=== PATIENT | male | born 1945 | race African-American/Black ===

== ENCOUNTER 2019-03-24 16:47 | Emergency (ER) | payer MEDICARE ==
[~2019-03-24] VITALS: Ht 165.1 cm; Wt 54.5 kg
[~2019-03-24 16:47] MED LIST: NO MEDS
[2019-03-24 17:37] LABS: ALKALINE PHOSPHATASE 106 u/l (38-126); BUN 24 mg/dL (8-23); BUN/CREATININE RATIO 24 (12-20 (CALC)); CHLORIDE 99 mmol/l (95-108); GFR > 60 ML/MIN (>=60 (CALC)); GFR FOR AFR.AMER. > 60 ML/MIN (>=60 (CALC)); SODIUM 138 mmol/l (137-146)
[2019-03-24 17:39] LABS: HEMATOCRIT 42.9 % (39.0-50.0); HEMOGLOBIN 14.3 g/dl (14.0-18.0); IMMATURE GRANULOCYTES 0.5 % (0.0-5.0); MEAN CELL VOLUME 89.6 fL CALC (80.0-100.0); MEAN CORPUSCULAR HGB 29.9 pG CALC (26.0-32.0); MEAN CORPUSCULAR HGB CONC 33.3 g/L CALC (32.0-36.0); NEUT# 10.72 thou/uL (1.82-7.42); RED BLOOD COUNT 4.79 mill/uL (4.70-6.10); RED CELL DISTRI WIDTH 12.6 % (11.5-15.5)
[2019-03-24 17:47] LABS: BILIRUBIN, TOTAL 1.6 mg/dL (0.0-1.4); CARBON DIOXIDE 23 mmol/l (22-30); SGOT/AST 118 u/l (19-48)
[2019-03-24 17:58] LABS: ANION GAP 20 (6-22 (CALC)); POTASSIUM 4.2 mmol/l (3.5-5.1)
[2019-03-24 18:19] LABS: ACT PARTIAL THROMBO TIME 33.8 SECONDS (20.0-32.5); INTERNATIONAL NORMALIZED RATIO 1.5 RATIO (0.7-1.3); PROTHROMBIN TIME 15.8 SECONDS (9.0-12.5)
[2019-03-24 19:39] LABS: URINE BILIRUBIN - DIPSTICK NEGATIVE (NEGATIVE); URINE BLOOD DIPSTICK LARGE (NEGATIVE); URINE COLOR YELLOW; URINE GLUCOSE - DIPSTICK NEGATIVE (NEGATIVE); URINE KETONE NEGATIVE (NEGATIVE); URINE LEUK ESTERASE NEGATIVE (NEGATIVE); URINE NITRITE - DIPSTICK NEGATIVE (Negative); URINE PH 5.5 (4.5-8.0); URINE PROTEIN - DIPSTICK 30 mg/dL (NEG-TRACE); URINE SPECIFIC GRAVITY 1.025
[2019-03-24 20:20] LABS: URINE RBC TNTC RBC/hpf (0-5)
[2019-03-24 20:26] LABS: URINE SQUAMOUS EPITHELIAL CELL FEW EPI/hpf (0-FEW)
[2019-03-24 23:34] VITALS: BP 154/84
[2019-05-10] MEDS ORDERED: ISOSORBIDE MONO60 MG PO (10:44)
[2019-05-10] MEDS ORDERED: HYDROCHLOROT25 MG PO (10:44)
[2019-05-10] MEDS ORDERED: NORVASC5 M1 PO (10:44)
[2019-05-10] MEDS ORDERED: STIOLTO RESPIMA1 AER (10:44)
[2019-05-10] MEDS ORDERED: ADVAIR DISK1 (10:45)
[2019-05-10] MEDS ORDERED: VALSARTAN160 MG PO (10:46)
[2019-05-10] MEDS ORDERED: METOPROL TAR25 MG PO (10:46)
== END 2019-03-24 22:45 ==
LOC: ED 16:47
DX: R06.03 Acute respiratory distress (principal); R09.02 Hypoxemia; I71.4 Abdominal aortic aneurysm, without rupture; E87.2 Acidosis; T50.916A Underdosing of multiple unspecified drugs, medicaments and biological substances, initial encounter; Z91.128 Patient's intentional underdosing of medication regimen for other reason; Z95.0 Presence of cardiac pacemaker; R00.0 Tachycardia, unspecified; D72.829 Elevated white blood cell count, unspecified
CPT/HCPCS: Q9967

== ENCOUNTER 2019-12-08 20:02 | Observation (INO) | payer MEDICARE ==
[~2019-12-08] VITALS: Ht 165.1 cm; Wt 56.4 kg
[~2019-12-08 20:02] MED LIST changes: +ADVAIR DISK1; +HYDROCHLOROT25 MG PO; +ISOSORBIDE MONO60 MG PO; +METOPROL TAR25 MG PO; +NORVASC5 M1 PO; +STIOLTO RESPIMA1 AER; +VALSARTAN160 MG PO
--- NOTE | 2019-12-08 20:06 | NUR ---
PT WHEELED TO ROOM 13 AND TRIAGED. PT COMPLAINING ABOUT RIGHT INGUINAL HERNIA THAT POPPED OUT ABOUT 3 HOURS AGO AND HE "CAN'T GET IT BACK IN"
--- NOTE | 2019-12-08 20:15 | NUR ---
PT UNABLE TO LIST MEDICATIONS. WILL PUT IN PHARMACY CONSULT IF PT ADMITTED.
[2019-12-08 20:44] LABS: HEMATOCRIT 40.6 % (39.0-50.0); HEMOGLOBIN 13.2 g/dl (14.0-18.0); IMMATURE GRANULOCYTES 0.3 % (0.0-5.0); MEAN CELL VOLUME 87.7 fL CALC (80.0-100.0); MEAN CORPUSCULAR HGB 28.5 pG CALC (26.0-32.0); MEAN CORPUSCULAR HGB CONC 32.5 g/dL CAL (32.0-36.0); NEUT# 2.58 thou/uL (1.82-7.42); RED BLOOD COUNT 4.63 mill/uL (4.70-6.10); RED CELL DISTRI WIDTH 11.9 % (11.5-15.5)
[2019-12-08 20:45] LABS: URINE BILIRUBIN - DIPSTICK NEGATIVE (NEGATIVE); URINE BLOOD DIPSTICK MODERATE (NEGATIVE); URINE COLOR YELLOW; URINE GLUCOSE - DIPSTICK NEGATIVE (NEGATIVE); URINE KETONE TRACE mg/dL (NEGATIVE); URINE LEUK ESTERASE NEGATIVE (NEGATIVE); URINE NITRITE - DIPSTICK NEGATIVE (Negative); URINE PH 5.5 (4.5-8.0); URINE PROTEIN - DIPSTICK 100 mg/dL (NEG-TRACE); URINE SPECIFIC GRAVITY >=1.030; URINE UROBILINOGEN - DIPSTICK 0.2 E.U./dL (0.2)
[2019-12-08 20:46] LABS: URINE EPITHELIAL CELLS FEW EPI/hpf (0-FEW); URINE MUCUS MODERATE hpf (NONE-FEW)
[2019-12-08 20:57] LABS: ALBUMIN 4.7 g/dL (3.2-5.0); ALKALINE PHOSPHATASE 105 u/l (38-126); ANION GAP 11 (6-22 (CALC)); BUN 17 mg/dL (8-23); BUN/CREATININE RATIO 19 (12-20 (CALC)); CARBON DIOXIDE 30 mmol/l (22-30); CHLORIDE 105 mmol/l (95-108); CREATININE 0.9 mg/dL (0.7-1.3); GFR > 60 ML/MIN (>=60 (CALC)); GFR FOR AFR.AMER. > 60 ML/MIN (>=60 (CALC)); POTASSIUM 3.7 mmol/l (3.5-5.1); SODIUM 142 mmol/l (137-146); TOTAL PROTEIN 7.5 g/dL (6.3-8.2)
[2019-12-08 20:59] LABS: ACT PARTIAL THROMBO TIME 23.6 SECONDS (20.0-32.5); INTERNATIONAL NORMALIZED RATIO 1.3 RATIO (0.7-1.3); PROTHROMBIN TIME 12.6 SECONDS (9.0-12.5)
[2019-12-08 21:00] LABS: BILIRUBIN, TOTAL 0.6 mg/dL (0.0-1.4); SGOT/AST 25 u/l (19-48)
--- NOTE | 2019-12-08 21:44 | NUR ---
PAIN IS NOW N SCALE NO N/V W/D SKIN PACED RHYTHM
--- NOTE | 2019-12-08 22:40 | NUR ---
A/OX3 NO N/V NO C/O PAIN PACED RHYTHM ON MONITOR
--- NOTE | 2019-12-08 23:10 | NUR ---
PHONE REPORT TO NURSE ANUJ CARREON [facility]
--- NOTE | 2019-12-08 23:12 | NUR ---
REPORT REC FROM MARYCHUY MCGUIRE
--- NOTE | 2019-12-08 23:15 | NUR ---
PT TRANSPORTED TO [facility] ON [facility] IN IMPROVED STABLE CONDITION
--- NOTE | 2019-12-08 23:19 | NUR ---
PT ARRIVED TO MS VIA STRETCHER ACCOMPANIED BY MARYCHUY MCGUIRE. A&O X3. NO DISTRESS NOTED. PT REPORTS PAIN 3/10. REPORTS LAST BM TO HAVE BEEN 3 DAYS AGO. HYPOACTIVE BOWEL SOUNDS HEARD UPON AUSCULTATION. LT UPPER CHEST PACEMAKER NOTED. RT TESTICLE NOTICEABLY LARGER COMPARED TO THE LT. DENIES ANY NAUSEA AT THIS TIME. #20 TO LAC PATENT AND EASILY FLUSHED. IV FLUIDS TO BE INITIATED. EDUCATED AND INFORMED PT ON NPO STATUS, PT VERBALIZED UNDERSTANDING. ORIENTED PT TO ROOM. WEAK AND UNSTEADY GAIT OBSERVED DURING AMBULATION TO BATHROOM. FABIOLA HOSES APPLIED. ASSESSMENT COMPLETED. DISCUSSED POC. CALL LIGHT IN REACH. CONTINUE TO MONITOR.
[2019-12-08 23:20] VITALS: BP 190/87
[2019-12-09 00:20] VITALS: BP 173/87
--- NOTE | 2019-12-09 00:33 | NUR ---
PTS BP UPON ARRIVAL 190/87, REEVALUATED BP 173/84. OBTAINED VERBAL ORDERS FROM ED PHYSICIAN DR FREEMAN FOR CLONIDINE 0.2 MG PO Q4 PRN. ORDER READ BACK TO PHYSICIAN, ORDER WRITTEN AND FAXED TO .
[2019-12-09 01:21] VITALS: BP 160/75
--- NOTE | 2019-12-09 01:21 | NUR ---
BP RE-EVALUATED BEFORE ADMINISTRATION OF CLONIDINE. BP NPW 160/75. CLONIDINE NOT GIVEN. WILL CONTINUE TO MONITOR.
--- NOTE | 2019-12-09 04:06 | NUR ---
PT SLEEPING IN BED. RESP EVEN AND UNLABORED. CONTINUE TO MONITOR
[2019-12-09 04:31] VITALS: BP 147/77
[2019-12-09] MEDS ORDERED: CLOPIDOGREL75 MG PO (07:35)
[2019-12-09] MEDS ORDERED: COZAAR100 MG PO (07:35)
[2019-12-09] MEDS ORDERED: TOPROL XL100 MG PO (07:36)
[2019-12-09] MEDS ORDERED: ATORVASTATIN CA40 MG PO (07:36)
--- NOTE | 2019-12-09 07:50 | NUR ---
RECEIVED REPORT FROM ANUJ REGARDING THIS PT. PT IS ALERT AND ORIENTED AND ABLE TO MAKE NEEDS KNOWN. SKIN WARM TO TOUCH.RESPIRATORY PANEL COMPLETED. RESIDENT HAVING SURGERY SCHEDULED THIS AM. NPO SINCE MIDNIGHT. BOWEL SOUNDS ACTIVE IN ALL QUADRANTS AND DENIES ABDOMINAL PAIN AT THIS TIME. RESPIRATIONS ARE EVEN AND NON LABORD. NO DISTRESS NOTED. CALL LIGHT IS WITHIN RECH. WILL CONTINEU TO OBSERVE
[2019-12-09 07:55] VITALS: BP 138/68
--- NOTE | 2019-12-09 10:54 | NUR ---
pt consented to recv pneumococcal vax, checked [place] shots and he just recd pneumovax on 08/29/19. no further vax recommended at this time
--- NOTE | 2019-12-09 11:26 | NUR ---
PT WAS DISCHARGED HOME THIS AM. EDUCATION COMPLETED WITH PT ON DISCHARGE INSTRUCTIONS AND DISCUSSED WITH PT ON HOLDING PLAVIX FOR SURGERY AND HE STATES HE UNDERSTANDS.PT WAS CARRIED TO VEHICLE VIA WHEELCHAIR. COMPLAINS OF ABDOMINal soreness at 3 on scale of 1-10 with 10 greatest. ALL PERTINENT PAPERS AND BELONGINGS TAKEN WITH PT. DR. CASEY OFFICE WILL CALL PT TO SCHEDULE SURGERY
== END 2019-12-09 11:15 | disposition home or self-care (01) ==
LOC: ED 20:02 → ED-I 21:52 → ED 22:24 → MS2 22:25
PROVIDERS: Family Medicine; ADMIT Internal Medicine; ATTEND Internal Medicine
DX: K40.30 Unilateral inguinal hernia, with obstruction, without gangrene, not specified as recurrent (principal); I10 Essential (primary) hypertension; I25.10 Atherosclerotic heart disease of native coronary artery without angina pectoris; F17.200 Nicotine dependence, unspecified, uncomplicated; Z95.0 Presence of cardiac pacemaker; Z79.02 Long term (current) use of antithrombotics/antiplatelets; Z11.59 Encounter for screening for other viral diseases
CPT/HCPCS: G0378; Q9967

== ENCOUNTER 2019-12-12 22:21 | Inpatient (IN) | payer MEDICARE ==
[~2019-12-12] VITALS: Ht 165.1 cm; Wt 54.2 kg
[~2019-12-12 22:21] MED LIST changes: +ATORVASTATIN CA40 MG PO; +CLOPIDOGREL75 MG PO; +COZAAR100 MG PO; +TOPROL XL100 MG PO
--- NOTE | 2019-12-12 22:25 | NUR ---
PT WHEELED TO ROOM 9 FOR TRIAGE. PT STATES HE IS SCHEDULED FOR SURGERY ON WEDNESDAY BUT STATES HE CAN'T TAKE THE PAIN. STATES EVERY TIME HE COUGHS IT HURTS.
--- NOTE | 2019-12-12 23:30 | NUR ---
#20 IV INITIATED TO RFA WITH BLOOD SPECIMENS OBTAINED. PT TOLERATED WELL. PLAN OF CARE DISCUSSED. VERBALIZED UNDERSTANDING. DENIES ANY NEEDS. CALL LIGHT WITHIN REACH.
[2019-12-12 23:37] LABS: HEMATOCRIT 39.6 % (39.0-50.0); HEMOGLOBIN 13.3 g/dl (14.0-18.0); IMMATURE GRANULOCYTES 0.2 % (0.0-5.0); MEAN CELL VOLUME 83.9 fL CALC (80.0-100.0); MEAN CORPUSCULAR HGB 28.2 pG CALC (26.0-32.0); MEAN CORPUSCULAR HGB CONC 33.6 g/dL CAL (32.0-36.0); NEUT# 6.61 thou/uL (1.82-7.42); RED BLOOD COUNT 4.72 mill/uL (4.70-6.10); RED CELL DISTRI WIDTH 11.6 % (11.5-15.5)
[2019-12-12 23:54] LABS: ALBUMIN 4.7 g/dL (3.2-5.0); ALKALINE PHOSPHATASE 106 u/l (38-126); AMYLASE 56 u/l (30-110); ANION GAP 14 (6-22 (CALC)); BUN 9 mg/dL (8-23); BUN/CREATININE RATIO 13 (12-20 (CALC)); CARBON DIOXIDE 28 mmol/l (22-30); CHLORIDE 103 mmol/l (95-108); CREATININE 0.7 mg/dL (0.7-1.3); GFR > 60 ML/MIN (>=60 (CALC)); GFR FOR AFR.AMER. > 60 ML/MIN (>=60 (CALC)); LIPASE 88 u/l (23-300); POTASSIUM 3.8 mmol/l (3.5-5.1); SGOT/AST 27 u/l (19-48); SODIUM 141 mmol/l (137-146)
--- NOTE | 2019-12-13 | NUR ---
PT BACK FROM CT- URINAL GIVEN FOR URINE SPECIMEN.
--- NOTE | 2019-12-13 00:08 | NUR ---
MEDICATED FOR B/P WHICH IS STILL 214/103
--- NOTE | 2019-12-13 00:40 | NUR ---
PT HAD EMESIS, B/P DOWN TO 151/85. ZOFRAN GIVEN
[2019-12-13 00:47] LABS: TOTAL PROTEIN 7.7 g/dL (6.3-8.2)
[2019-12-13 00:47] LABS: URINE BILIRUBIN - DIPSTICK NEGATIVE (NEGATIVE); URINE BLOOD DIPSTICK SMALL (NEGATIVE); URINE COLOR YELLOW; URINE GLUCOSE - DIPSTICK NEGATIVE (NEGATIVE); URINE KETONE NEGATIVE (NEGATIVE); URINE LEUK ESTERASE NEGATIVE (NEGATIVE); URINE NITRITE - DIPSTICK NEGATIVE (Negative); URINE PH 6.5 (4.5-8.0); URINE PROTEIN - DIPSTICK NEGATIVE (NEG-TRACE); URINE SPECIFIC GRAVITY 1.015; URINE UROBILINOGEN - DIPSTICK 0.2 E.U./dL (0.2)
--- NOTE | 2019-12-13 01:05 | NUR ---
PT TO BE ADMITED. INGUINAL HERNIA INCARCERATED. PT AWARE OF ADMIT AND AGREED TO SAME.
[2019-12-13 01:14] LABS: URINE SQUAMOUS EPITHELIAL CELL FEW EPI/hpf (0-FEW)
--- NOTE | 2019-12-13 01:26 | NUR ---
CALLED FLOOR TO GIVE REPORT, PRIYA STATED EVELYNE WILL CALL BACK SHE IS NOT AT THE DESK
--- NOTE | 2019-12-13 01:52 | NUR ---
Admission Note Report Given to: SHAYLA STUBBS Transported by: X Wheelchair Stretcher Transported with: X Nurse Transporter X Patent IV O2 X Concession Cashier Location: ICU X [facility]
[2019-12-13 02:12] VITALS: BP 151/84
--- NOTE | 2019-12-13 02:15 | NUR ---
PT. ARRIVED TO THE FLOOR VIA STRETCHER ACCOMPANIED BY ER NURSE. PT. IS A/A/O/ X3. ORIENTED TO CALL LIGHT, ROOM, AND POC; VERBALIZES UNDERSTANDING. IV SITE PATENT TO RFA AND FLUSHED; ORDERED IVF AND ANTIBIOIC HUNG. REPORTS SLIGHT PAIN TO RIGHT SIDED INGUINAL PAIN, BUT DENIES NEEDS FOR PAIN MEDICATION. PT. IS INFORMED TO NOTIFY STAFF IF PAIN MEDS ARE NEEDED; VERBALZIES UNDERSTANDING. PT. IS NPO. FABIOLA HOSE APPLIED TO BLE AND NON SKID SOCKS. PT. REPORTS COUGH, BUT REPORTS IT IS FROM AIR CONDITION AND STARTED IN ER TONIGHT. DENIES ANY EXPOSURE TO COVID AND DENIES ANY TRAVEL OR FEVER AT HOME. ENCOURAGED TO CALL FOR ANY NEEDS.
--- NOTE | 2019-12-13 03:30 | NUR ---
RESTING IN BED WITH NO DISTRESS NOTED.
[2019-12-13 07:30] VITALS: BP 157/84
--- NOTE | 2019-12-13 07:30 | NUR ---
PT SLEEPING IN BED. AWAKENED TO COMPLETE ASSESSMENT. A&O X3. NO DISTRESS NOTED. PT DENIES ANY PAIN AT THIS TIME. RT INGUINAL HERNIA NOTED. NO OTHER NEEDS AT THIS TIME. ASSESSMENT COMPLETED. DISCUSSED POC. CALL LIGHT IN REACH. CONTINUE TO MONITOR.
[2019-12-13] MEDS ORDERED: CLOPIDOGREL75 MG PO (09:27)
[2019-12-13 10:30] VITALS: BP 145/85
--- NOTE | 2019-12-13 11:00 | NUR ---
OR CONSENT SIGNED/OBTAINED
--- NOTE | 2019-12-13 13:07 | NUR ---
PT ARRIVED FROM OR VIA STRETCHER. A&O X3. PT REPORTS TO FEEL "WOOZY". PT CURRENTLY ON ROOM AIR, WITH NO DISTRESS NOTED. BILATERAL SCD'S PLACED. HERNIA INCISION CDI WITH DERMABOND IN PLACE. ENCOURAGED PT TO CALL WHEN HE NEEDED TO GET UP TO PREVENT A FALL. BED SET IN LOWEST POSITION. CALL LIGHT IN REACH. CONTINUE TO MONITOR.
--- NOTE | 2019-12-13 17:19 | NUR ---
PT SITTING IN BED EATING DINNER. NO NEEDS AT THIS TIME. CALL LIGHT IN REACH. CONTINUE TO MONITOR.
[2019-12-13 19:00] VITALS: BP 123/78
--- NOTE | 2019-12-13 20:00 | NUR ---
PT RESTING IN BED, NO SIGNS OF DISTRESS NOTED, RESP EVEN AND UNLABORED. ALERT AND ORIENTED X3, PT CONCERNED OF SWELLING TO SCROTUM, NOTED EDEMA, MARKED AND ELEVATED ON WASHCLOTHS, WILL CONTINUE TO MONITOR. INCISION IS C/D/I WITH DERMABOND. DISCUSSED POC, PT ALSO CONCERNED OF HR, INFORMED PT THAT HE IS ON A HEART MONITOR AND VITALS WILL BE MONITORED Q4H. ADMISSION ASSESSMENT COMPLETED, SCD'S IN PLACE, CALL LIGHT IN REACH,CONTINUE TO MONITOR.
[2019-12-13 23:27] VITALS: BP 112/75
--- NOTE | 2019-12-14 | NUR ---
PT RESTING IN BED WITH EYES CLOSED, NO SIGNS OF DISTRESS NOTED, RESP EVEN AND UNLABORED. CALL LIGHT IN REACH,CONTINUE TO MONITOR.
--- NOTE | 2019-12-14 02:09 | NUR ---
PT C/O PAIN TO SCROTUM, MEDICATED PER JUN. CHECKED EDEMA TO SCROTUM, NOTED PT HAD REMOVED TOWEL, REPLACED TOWEL TO ELEVATE SCROTUM, CALL LIGHT IN REACH,CONTINUE TO MONITOR.
--- NOTE | 2019-12-14 06:12 | NUR ---
PT SITTING ON SIDE OF BED, NO SIGNS OF DISTRESS NOTED, RESP EVEN AND UNLABORED. CALL LIGHT IN REACH,CONTINUE TO MONITOR.
[2019-12-14 07:06] VITALS: BP 116/70
--- NOTE | 2019-12-14 07:06 | NUR ---
PT SITTING IN BED. A&O X3. NO DISTRESS NOTED. SWELLING TO SCROTUM AND PENIS NOTED, PT REPORTS ONLY "TENDERNESS". NO OTHER NEEDS AT THIS TIME. SCD'S IN PLACE. ASSESSMENT COMPLETED. DISCUSSED POC. CALL LIGHT IN REACH. CONTINUE TO MONITOR.
[2019-12-14] MEDS ORDERED: TYLENOL # 31 TA1 PO (10:30)
[2019-12-14 10:35] VITALS: BP 115/67
--- NOTE | 2019-12-14 12:33 | NUR ---
PT SITTING IN BED EATING LUNCH. NO DISTRESS OR NEEDS AT THIS TIME. CALL LIGHT IN REACH. CONTINUE TO MONITOR.
--- NOTE | 2019-12-14 13:26 | NUR ---
Discharge instructions given. Patient verbalizes understanding of same. Discharged in stable condition via wheelchair to home accompanied by staff staff. Script for Tylenol #3 given to pt. All belongings sent with pt.
== END 2019-12-14 13:26 | disposition home or self-care (01) | DRG 352 ==
LOC: ED 22:21 → ED-I 12-13 00:46 → ED 12-13 01:04 → MS2 12-13 01:05 → ED 12-13 01:05 → MS2 12-13 01:05
PROVIDERS: Emergency Medicine; ADMIT Internal Medicine; ATTEND Internal Medicine
PROC: 0YU50JZ Supplement Right Inguinal Region with Synthetic Substitute, Open Approach (ICD-10-PCS; principal; 2019-12-13)
DX: K40.30 Unilateral inguinal hernia, with obstruction, without gangrene, not specified as recurrent (principal); I10 Essential (primary) hypertension; I25.10 Atherosclerotic heart disease of native coronary artery without angina pectoris; E78.5 Hyperlipidemia, unspecified; F17.200 Nicotine dependence, unspecified, uncomplicated; Z95.0 Presence of cardiac pacemaker; Z79.02 Long term (current) use of antithrombotics/antiplatelets; Z11.59 Encounter for screening for other viral diseases
CPT/HCPCS: C9290; J0131; J2710; Q9967

== ENCOUNTER 2021-03-20 08:39 | Observation (INO) | payer MEDICARE ==
[2021-03-20] VITALS (12 sets, daily range): BP systolic 90–229; BP diastolic 50–116
[~2021-03-20] VITALS: Ht 165.1 cm; Wt 54.5 kg
[~2021-03-20 08:39] MED LIST changes: +ASPIRIN81 MG PO; +TYLENOL # 31 TA1 PO
[2021-03-20] MEDS ORDERED: ALBUTEROL SUL0.083 % IN (09:00)
[2021-03-20] MEDS ORDERED: PLAVIX75 MG PO (10:15)
[2021-03-20] MEDS ORDERED: PERCOCET 5/325M1 TAB PO (13:47)
[2021-03-20 16:20] LABS: HEMATOCRIT 37.3 % (39.0-50.0); HEMOGLOBIN 12.5 g/dl (14.0-18.0); IMMATURE GRANULOCYTES 0.1 % (0.0-5.0); MEAN CELL VOLUME 91.2 fL CALC (80.0-100.0); MEAN CORPUSCULAR HGB 30.6 pG CALC (26.0-32.0); MEAN CORPUSCULAR HGB CONC 33.5 g/dL CAL (32.0-36.0); NEUT# 6.44 thou/uL (1.82-7.42); RED BLOOD COUNT 4.09 mill/uL (4.70-6.10); RED CELL DISTRI WIDTH 11.7 % (11.5-15.5)
[2021-03-20 16:32] LABS: ALBUMIN 3.8 g/dL (3.2-5.0); ALKALINE PHOSPHATASE 94 u/l (38-126); BILIRUBIN, TOTAL 0.7 mg/dL (0.0-1.4); BUN 14 mg/dL (8-23); BUN/CREATININE RATIO 15 (12-20 (CALC)); CARBON DIOXIDE 32 mmol/l (22-30); CHLORIDE 99 mmol/l (95-108); GFR > 60 ML/MIN (>=60 (CALC)); GFR FOR AFR.AMER. > 60 ML/MIN (>=60 (CALC)); SODIUM 136 mmol/l (137-146); TOTAL PROTEIN 6.7 g/dL (6.3-8.2)
[2021-03-20 16:42] LABS: ANION GAP 10 (6-22 (CALC)); POTASSIUM 5.4 mmol/l (3.5-5.1); SGOT/AST 48 u/l (19-48)
[2021-03-20 16:50] LABS: INTERNATIONAL NORMALIZED RATIO 1.2 RATIO (0.7-1.3); PROTHROMBIN TIME 12.7 SECONDS (9.0-12.5)
[2021-03-21] VITALS (14 sets, daily range): BP systolic 84–149; BP diastolic 44–65
[2021-03-21 06:41] LABS: HEMATOCRIT 33.9 % (39.0-50.0); HEMOGLOBIN 11.2 g/dl (14.0-18.0); MEAN CELL VOLUME 91.9 fL CALC (80.0-100.0); MEAN CORPUSCULAR HGB 30.4 pG CALC (26.0-32.0); RED BLOOD COUNT 3.69 mill/uL (4.70-6.10); RED CELL DISTRI WIDTH 11.9 % (11.5-15.5)
[2021-03-21 06:46] LABS: ALBUMIN 3.3 g/dL (3.2-5.0); ALKALINE PHOSPHATASE 72 u/l (38-126); ANION GAP 10 (6-22 (CALC)); BILIRUBIN, TOTAL 0.5 mg/dL (0.0-1.4); BUN 14 mg/dL (8-23); BUN/CREATININE RATIO 15 (12-20 (CALC)); CARBON DIOXIDE 32 mmol/l (22-30); CHLORIDE 96 mmol/l (95-108); GFR > 60 ML/MIN (>=60 (CALC)); GFR FOR AFR.AMER. > 60 ML/MIN (>=60 (CALC)); MAGNESIUM 1.7 mg/dL (1.6-2.3); SGOT/AST 39 u/l (19-48); SODIUM 134 mmol/l (137-146); TOTAL PROTEIN 5.9 g/dL (6.3-8.2)
[2021-03-21 06:47] LABS: POTASSIUM 4.1 mmol/l (3.5-5.1)
[2021-03-21 18:48] LABS: ACT PARTIAL THROMBO TIME 65.7 SECONDS (20.0-32.5); INTERNATIONAL NORMALIZED RATIO 1.3 RATIO (0.7-1.3); PROTHROMBIN TIME 13.3 SECONDS (9.0-12.5)
== END 2021-03-21 20:00 | disposition short-term general hospital (02) ==
LOC: ORM 08:39 → ICU 16:15
PROVIDERS: Nurse Practitioner; ADMIT Surgery; ATTEND Hospitalist
PROC: 06BY3ZC Excision of Hemorrhoidal Plexus, Percutaneous Approach (ICD-10-PCS; principal; 2021-03-20)
PROC: 0BH17EZ Insertion of Endotracheal Airway into Trachea, Via Natural or Artificial Opening (ICD-10-PCS; 2021-03-20)
PROC: 5A1935Z Respiratory Ventilation, Less than 24 Consecutive Hours (ICD-10-PCS; 2021-03-20)
DX: K64.3 Fourth degree hemorrhoids (principal); R40.4 Transient alteration of awareness; R79.89 Other specified abnormal findings of blood chemistry; I10 Essential (primary) hypertension; I25.10 Atherosclerotic heart disease of native coronary artery without angina pectoris; J44.9 Chronic obstructive pulmonary disease, unspecified; E78.5 Hyperlipidemia, unspecified; Z95.0 Presence of cardiac pacemaker; Z79.02 Long term (current) use of antithrombotics/antiplatelets; Z79.82 Long term (current) use of aspirin; Z87.891 Personal history of nicotine dependence
CPT/HCPCS: C9290; J1644; Q9967

== ENCOUNTER 2023-04-14 03:29 | Inpatient (IN) | payer MEDICARE ==
[~2023-04-14] VITALS: Ht 165.1 cm; Wt 51.0 kg
[2023-04-14] VITALS (24 sets, daily range): BP systolic 116–202; BP diastolic 62–153
[~2023-04-14 03:29] MED LIST changes: +ALBUTEROL SUL0.083 % IN; +AMOX/K CLAV875 M1 PO; +DOXYCYCLINE100 MG PO; +FEROSUL325 MG PO; +IPRATROPIU0.5 MG/3 M IN; +MEDDOSEPAK PO; +PERCOCET 5/325M1 TAB PO; +PLAVIX75 MG PO
[2023-04-14 04:49] LABS: BASO% 0.2 % (0-3); EOS% 0.1 % (0-8); HEMOGLOBIN 12.9 g/dl (14.0-18.0); IMMATURE GRANULOCYTES 0.1 % (0.0-5.0); LYMPH% 12.9 % (15-41); MEAN CELL VOLUME 98.6 fL CALC (80.0-100.0); MEAN CORPUSCULAR HGB 30.3 pG CALC (26.0-32.0); MEAN CORPUSCULAR HGB CONC 30.7 g/dL CAL (32.0-36.0); MONO% 5.9 % (2-13); NEUT# 12.5 thou/uL (1.82-7.42); NEUT% 80.8 % (42-76); RED BLOOD COUNT 4.26 mill/uL (4.70-6.10); RED CELL DISTRI WIDTH 12.9 % (11.5-15.5)
[2023-04-14 04:55] LABS: ALBUMIN 4.5 g/dL (3.2-5.0); ALKALINE PHOSPHATASE 134 u/l (38-126); BILIRUBIN, TOTAL 0.5 mg/dL (0.2-1.3); BUN 20 mg/dL (8-23); BUN/CREATININE RATIO 24 (12-20 (CALC)); CHLORIDE 102 mmol/l (95-108); CREATININE 0.8 mg/dL (0.7-1.3); GFR FOR AFR.AMER. > 60 ML/MIN (>=60 (CALC)); GFR OTHER RACES > 60 ML/MIN (>=60 (CALC)); SODIUM 143 mmol/l (137-146)
[2023-04-14 05:01] LABS: ANION GAP 13 (6-22 (CALC)); CARBON DIOXIDE 32 mmol/l (22-30); SGOT/AST 171 u/l (19-48); TOTAL PROTEIN 7.7 g/dL (6.3-8.2)
[2023-04-14 08:38] LABS: URINE BILIRUBIN - DIPSTICK Negative (NEGATIVE); URINE BLOOD DIPSTICK Small (NEGATIVE); URINE GLUCOSE - DIPSTICK Negative (NEGATIVE); URINE KETONE Negative (NEGATIVE); URINE LEUK ESTERASE Negative (NEGATIVE); URINE NITRITE - DIPSTICK Negative (Negative); URINE PROTEIN - DIPSTICK Negative (NEG-TRACE); URINE UROBILINOGEN - DIPSTICK 0.2 E.U./dL (0.2)
[2023-04-14 08:41] LABS: URINE COLOR Yellow
[2023-04-14 08:53] LABS: URINE SQUAMOUS EPITHELIAL CELL FEW EPI/hpf (0-FEW); URINE WBC 0-2 WBC/hpf (0-5)
[2023-04-14 08:58] LABS: URINE RED BLOOD CELL CAST RARE lpf
[2023-04-14] MEDS ORDERED: LIPITOR80 M1 PO (09:28)
[2023-04-15] VITALS (10 sets, daily range): BP systolic 133–187; BP diastolic 59–140
[2023-04-15 06:03] LABS: BASO% 0.1 % (0-3); HEMATOCRIT 38.6 % (39.0-50.0); HEMOGLOBIN 12.4 g/dl (14.0-18.0); IMMATURE GRANULOCYTES 0.4 % (0.0-5.0); LYMPH% 6.3 % (15-41); MEAN CELL VOLUME 96.5 fL CALC (80.0-100.0); MEAN CORPUSCULAR HGB CONC 32.1 g/dL CAL (32.0-36.0); MONO% 3.3 % (2-13); NEUT# 14.34 thou/uL (1.82-7.42); NEUT% 89.9 % (42-76); RED CELL DISTRI WIDTH 12.7 % (11.5-15.5)
[2023-04-15 06:27] LABS: ALBUMIN 3.7 g/dL (3.2-5.0); ALKALINE PHOSPHATASE 123 u/l (38-126); ANION GAP 10 (6-22 (CALC)); BILIRUBIN, TOTAL 0.4 mg/dL (0.2-1.3); BUN 19 mg/dL (8-23); BUN/CREATININE RATIO 31 (12-20 (CALC)); CARBON DIOXIDE 33 mmol/l (22-30); CHLORIDE 99 mmol/l (95-108); CREATININE 0.6 mg/dL (0.7-1.3); GFR FOR AFR.AMER. > 60 ML/MIN (>=60 (CALC)); GFR OTHER RACES > 60 ML/MIN (>=60 (CALC)); MAGNESIUM 1.6 mg/dL (1.6-2.3); POTASSIUM 4.4 mmol/l (3.5-5.1); SGOT/AST 111 u/l (19-48); SODIUM 139 mmol/l (137-146); TOTAL PROTEIN 6.2 g/dL (6.3-8.2)
[2023-04-16 00:08] VITALS: BP 131/63
[2023-04-16 04:27] VITALS: BP 140/70
[2023-04-16 06:37] VITALS: BP 142/72
[2023-04-16 06:43] LABS: BASO% 0.1 % (0-3); HEMATOCRIT 39.9 % (39.0-50.0); HEMOGLOBIN 12.9 g/dl (14.0-18.0); IMMATURE GRANULOCYTES 0.4 % (0.0-5.0); LYMPH% 8.4 % (15-41); MEAN CELL VOLUME 96.6 fL CALC (80.0-100.0); MEAN CORPUSCULAR HGB 31.2 pG CALC (26.0-32.0); MEAN CORPUSCULAR HGB CONC 32.3 g/dL CAL (32.0-36.0); MONO% 3.9 % (2-13); NEUT# 12.21 thou/uL (1.82-7.42); NEUT% 87.2 % (42-76); RED BLOOD COUNT 4.13 mill/uL (4.70-6.10); RED CELL DISTRI WIDTH 12.2 % (11.5-15.5)
[2023-04-16 07:10] LABS: ALBUMIN 3.8 g/dL (3.2-5.0); ALKALINE PHOSPHATASE 116 u/l (38-126); ANION GAP 10 (6-22 (CALC)); BILIRUBIN, TOTAL 0.4 mg/dL (0.2-1.3); BUN 21 mg/dL (8-23); BUN/CREATININE RATIO 30 (12-20 (CALC)); CARBON DIOXIDE 33 mmol/l (22-30); CHLORIDE 97 mmol/l (95-108); CREATININE 0.7 mg/dL (0.7-1.3); GFR FOR AFR.AMER. > 60 ML/MIN (>=60 (CALC)); GFR OTHER RACES > 60 ML/MIN (>=60 (CALC)); POTASSIUM 4.5 mmol/l (3.5-5.1); SGOT/AST 63 u/l (19-48); SODIUM 136 mmol/l (137-146); TOTAL PROTEIN 6.4 g/dL (6.3-8.2)
[2023-04-16 07:12] LABS: MAGNESIUM 2.4 mg/dL (1.6-2.3)
[2023-04-16 16:53] VITALS: BP 178/80
[2023-04-16 19:07] VITALS: BP 202/100
[2023-04-16 19:56] VITALS: BP 184/98
[2023-04-17] VITALS (8 sets, daily range): BP systolic 120–183; BP diastolic 55–99
[2023-04-17 07:12] LABS: BASO% 0.1 % (0-3); HEMATOCRIT 43.1 % (39.0-50.0); IMMATURE GRANULOCYTES 0.7 % (0.0-5.0); LYMPH% 11.6 % (15-41); MEAN CORPUSCULAR HGB 31.2 pG CALC (26.0-32.0); MEAN CORPUSCULAR HGB CONC 32.5 g/dL CAL (32.0-36.0); MONO% 2.8 % (2-13); NEUT# 12.39 thou/uL (1.82-7.42); NEUT% 84.8 % (42-76); RED BLOOD COUNT 4.49 mill/uL (4.70-6.10); RED CELL DISTRI WIDTH 12.1 % (11.5-15.5)
[2023-04-17 07:36] LABS: ALBUMIN 4.1 g/dL (3.2-5.0); ALKALINE PHOSPHATASE 133 u/l (38-126); ANION GAP 9 (6-22 (CALC)); BUN 18 mg/dL (8-23); BUN/CREATININE RATIO 31 (12-20 (CALC)); CARBON DIOXIDE 34 mmol/l (22-30); CHLORIDE 96 mmol/l (95-108); CREATININE 0.6 mg/dL (0.7-1.3); GFR FOR AFR.AMER. > 60 ML/MIN (>=60 (CALC)); GFR OTHER RACES > 60 ML/MIN (>=60 (CALC)); MAGNESIUM 2.2 mg/dL (1.6-2.3); POTASSIUM 4.5 mmol/l (3.5-5.1); SGOT/AST 89 u/l (19-48); SODIUM 134 mmol/l (137-146); TOTAL PROTEIN 7.1 g/dL (6.3-8.2)
[2023-04-17 08:03] LABS: BILIRUBIN, TOTAL 0.6 mg/dL (0.2-1.3)
[2023-04-18] VITALS (7 sets, daily range): BP systolic 148–189; BP diastolic 72–99
[2023-04-18 06:34] LABS: BASO% 0.1 % (0-3); HEMOGLOBIN 13.2 g/dl (14.0-18.0); IMMATURE GRANULOCYTES 0.6 % (0.0-5.0); MEAN CELL VOLUME 93.9 fL CALC (80.0-100.0); MONO% 4.2 % (2-13); NEUT# 11.6 thou/uL (1.82-7.42); NEUT% 85.1 % (42-76); RED BLOOD COUNT 4.26 mill/uL (4.70-6.10); RED CELL DISTRI WIDTH 11.9 % (11.5-15.5)
[2023-04-18 07:11] LABS: ALBUMIN 3.7 g/dL (3.2-5.0); ALKALINE PHOSPHATASE 106 u/l (38-126); ANION GAP 8 (6-22 (CALC)); BILIRUBIN, TOTAL 0.5 mg/dL (0.2-1.3); BUN 24 mg/dL (8-23); BUN/CREATININE RATIO 38 (12-20 (CALC)); CARBON DIOXIDE 38 mmol/l (22-30); CHLORIDE 93 mmol/l (95-108); CREATININE 0.6 mg/dL (0.7-1.3); GFR FOR AFR.AMER. > 60 ML/MIN (>=60 (CALC)); GFR OTHER RACES > 60 ML/MIN (>=60 (CALC)); MAGNESIUM 2.1 mg/dL (1.6-2.3); POTASSIUM 4.6 mmol/l (3.5-5.1); SGOT/AST 67 u/l (19-48); SODIUM 135 mmol/l (137-146); TOTAL PROTEIN 6.3 g/dL (6.3-8.2)
[2023-04-19 03:57] VITALS: BP 136/71
[2023-04-19 04:45] VITALS: BP 136/71
[2023-04-19 06:59] LABS: BASO% 0.1 % (0-3); HEMATOCRIT 36.6 % (39.0-50.0); HEMOGLOBIN 12.2 g/dl (14.0-18.0); IMMATURE GRANULOCYTES 0.4 % (0.0-5.0); LYMPH% 9.7 % (15-41); MEAN CELL VOLUME 93.6 fL CALC (80.0-100.0); MEAN CORPUSCULAR HGB 31.2 pG CALC (26.0-32.0); MEAN CORPUSCULAR HGB CONC 33.3 g/dL CAL (32.0-36.0); MONO% 4.2 % (2-13); NEUT# 9.84 thou/uL (1.82-7.42); NEUT% 85.6 % (42-76); RED BLOOD COUNT 3.91 mill/uL (4.70-6.10); RED CELL DISTRI WIDTH 11.8 % (11.5-15.5)
[2023-04-19 07:14] LABS: ALBUMIN 3.2 g/dL (3.2-5.0); ALKALINE PHOSPHATASE 87 u/l (38-126); BILIRUBIN, TOTAL 0.4 mg/dL (0.2-1.3); BUN 21 mg/dL (8-23); BUN/CREATININE RATIO 31 (12-20 (CALC)); CHLORIDE 93 mmol/l (95-108); CREATININE 0.7 mg/dL (0.7-1.3); GFR FOR AFR.AMER. > 60 ML/MIN (>=60 (CALC)); GFR OTHER RACES > 60 ML/MIN (>=60 (CALC)); POTASSIUM 4.1 mmol/l (3.5-5.1); SGOT/AST 46 u/l (19-48); SODIUM 134 mmol/l (137-146); TOTAL PROTEIN 5.5 g/dL (6.3-8.2)
[2023-04-19 07:28] VITALS: BP 139/79
[2023-04-19 08:15] LABS: ANION GAP 7 (6-22 (CALC)); CARBON DIOXIDE 38 mmol/l (22-30)
[2023-04-19 16:22] VITALS: BP 178/91
[2023-04-19 20:55] VITALS: BP 169/88
[2023-04-20] VITALS: BP 157/85
[2023-04-20 04:30] VITALS: BP 162/71
[2023-04-20 07:01] VITALS: BP 172/93
[2023-04-20 07:26] LABS: BASO% 0.1 % (0-3); HEMATOCRIT 40.3 % (39.0-50.0); IMMATURE GRANULOCYTES 0.4 % (0.0-5.0); LYMPH% 9.8 % (15-41); MEAN CELL VOLUME 94.6 fL CALC (80.0-100.0); MEAN CORPUSCULAR HGB 30.5 pG CALC (26.0-32.0); MEAN CORPUSCULAR HGB CONC 32.3 g/dL CAL (32.0-36.0); MONO% 4.5 % (2-13); NEUT# 12.03 thou/uL (1.82-7.42); NEUT% 85.2 % (42-76); RED BLOOD COUNT 4.26 mill/uL (4.70-6.10); RED CELL DISTRI WIDTH 11.9 % (11.5-15.5)
[2023-04-20 08:32] LABS: ALBUMIN 3.8 g/dL (3.2-5.0); ALKALINE PHOSPHATASE 93 u/l (38-126); ANION GAP 10 (6-22 (CALC)); BILIRUBIN, TOTAL 0.5 mg/dL (0.2-1.3); BUN 23 mg/dL (8-23); BUN/CREATININE RATIO 35 (12-20 (CALC)); CARBON DIOXIDE 37 mmol/l (22-30); CHLORIDE 91 mmol/l (95-108); CREATININE 0.7 mg/dL (0.7-1.3); GFR FOR AFR.AMER. > 60 ML/MIN (>=60 (CALC)); GFR OTHER RACES > 60 ML/MIN (>=60 (CALC)); POTASSIUM 4.4 mmol/l (3.5-5.1); SGOT/AST 63 u/l (19-48); SODIUM 134 mmol/l (137-146); TOTAL PROTEIN 6.2 g/dL (6.3-8.2)
[2023-04-20 09:43] VITALS: BP 128/64
[2023-04-20 11:35] VITALS: BP 143/92
[2023-04-20] MEDS ORDERED: PREDNISONE20 MG PO (13:33)
[2023-04-20] MEDS ORDERED: VIBRAMYCIN100 M2 PO (13:33)
== END 2023-04-20 16:50 | disposition home health service (06) | DRG 191 ==
LOC: ED 03:29 → ED-I 10:56 → ED 11:07 → MS2 11:08
PROVIDERS: Family Medicine; ADMIT Student in an Organized Health Care Education/Training Program; ATTEND Student in an Organized Health Care Education/Training Program
DX: J44.1 Chronic obstructive pulmonary disease with (acute) exacerbation (principal); J96.11 Chronic respiratory failure with hypoxia; I11.9 Hypertensive heart disease without heart failure; I25.10 Atherosclerotic heart disease of native coronary artery without angina pectoris; I08.1 Rheumatic disorders of both mitral and tricuspid valves; E78.5 Hyperlipidemia, unspecified; R91.8 Other nonspecific abnormal finding of lung field; F17.210 Nicotine dependence, cigarettes, uncomplicated; Z95.5 Presence of coronary angioplasty implant and graft; Z95.0 Presence of cardiac pacemaker
CPT/HCPCS: J1650; J3475; Q9967